=== PATIENT | male | born 1955 | race Asian ===

== ENCOUNTER 2017-08-21 08:21 | Day surgery (SDC) | payer OTHER ==
[2017-08-21] VITALS (14 sets, daily range): BP systolic 122–154; BP diastolic 83–95; PULSE 68–85; RESP 14–18; Ht 172.7 cm; Wt 82.7 kg
[~2017-08-21] VITALS: Ht 172.7 cm; Wt 82.7 kg
[~2017-08-21 08:21] MED LIST: CEFAZOLIN 1 GM INJ ONE; ROCURONIUM 50 MG INJ ONE
[2017-08-21] MEDS ORDERED: SOD CHLORIDE 0.9% 1,000 ML IV SCH (08:30)
[2017-08-21] MEDS ORDERED: CEFAZOLIN 2 GM/50 ML (PMX) 50 ML IVPB ONE (08:30)
[2017-08-21 09:38] LABS: BASOPHILS % 0.5 % (0.0-2.0); EOSINOPHILS # 0.2 10^3/ul (0.0-0.5); EOSINOPHILS % 4.6 % (0.0-7.0); HEMATOCRIT 42.4 % (42.0-52.0); HEMOGLOBIN 14.5 g/dl (14.0-18.0); LYMPHOCYTES # 1.4 10^3/ul (0.8-2.9); LYMPHOCYTES % 34.2 % (15.0-51.0); MEAN CORPUSCULAR HEMOGLOBIN 30.7 pg (29.0-33.0); MEAN CORPUSCULAR HGB CONC 34.2 g/dl (32.0-37.0); MEAN CORPUSCULAR VOLUME 89.8 fl (82.0-101.0); MEAN PLATELET VOLUME 10.1 fl (7.4-10.4); MONOCYTE # 0.3 10^3/ul (0.3-0.9); MONOCYTES % 8.1 % (0.0-11.0); NEUTROPHIL # 2.1 10^3/ul (1.6-7.5); NEUTROPHILS % 52.6 % (39.0-77.0); PLATELET COUNT 177 10^3/UL (140-415); RED BLOOD COUNT 4.72 10^6/ul (4.70-6.10)
[2017-08-21] MEDS ORDERED: LOSA100T7 PO (09:49)
[2017-08-21] MEDS ORDERED: SIMV20TA2 PO (09:49)
[2017-08-21 09:58] LABS: HOLD TRANSMISSIONS 1
[2017-08-21] MEDS ORDERED: ALBUTEROL 0.083% (NEB) 2.5 MG/3 ML AMP HHN PRN (11:00)
[2017-08-21] MEDS ORDERED: KETOROLAC 30 MG INJ IV PRN (11:00)
[2017-08-21] MEDS ORDERED: hydrALAzine 20 MG INJ IV PRN (11:00)
[2017-08-21] MEDS ORDERED: ONDANSETRON 4 MG INJ IV PRN (11:00)
[2017-08-21] MEDS ORDERED: METOCLOPRAMIDE 10 MG INJ IV PRN (11:00)
[2017-08-21] MEDS ORDERED: EPHEDrine SULFATE 50 MG/5 ML SYG IV PRN (11:00)
[2017-08-21] MEDS ORDERED: MIDAZOLAM 1 MG/ML 2 ML INJ IV PRN (11:00)
[2017-08-21] MEDS ORDERED: OXYCODONE/ACETAMINOPHEN (5/325) TAB PO PRN ×2 (11:00)
[2017-08-21] MEDS ORDERED: DIPHENHYDRAMINE 50 MG INJ IV PRN (11:00)
[2017-08-21] MEDS ORDERED: LABETALOL HCL 20MG INJ IV PRN (11:00)
[2017-08-21] MEDS ORDERED: MEPERIDINE 25 MG INJ IV PRN (11:00)
[2017-08-21] MEDS ORDERED: FENTAnyl 50 MCG/ML VIAL IV PRN ×3 (11:00)
[2017-08-21] MEDS ORDERED: HYDROmorphONE (0.2 MG/ML) 10ML SYG IV PRN ×2 (11:00)
[2017-08-21] MEDS ORDERED: BUPIVACAINE 0.25% (MPF) 30 ML INJ ONE (11:02)
[2017-08-21] MEDS ORDERED: POLYMYXIN/BACITRACIN 1L IRRIG ONE (11:02)
[2017-08-21] MEDS ORDERED: LIDOCAINE 2% (SDV) 5 ML INJ ONE (11:29)
[2017-08-21] MEDS ORDERED: PROPOFOL 20 ML ONE (11:29)
[2017-08-21] MEDS ORDERED: ROCURONIUM 50 MG INJ ONE (11:29)
[2017-08-21] MEDS ORDERED: FENTAnyl 50 MCG/ML VIAL ONE (11:31)
--- NOTE | 2017-08-21 11:41 | RADRPT ---
PROCEDURE: XR Chest. CLINICAL INDICATION: Preop evaluation. TECHNIQUE: Single frontal view of the chest was obtained COMPARISON: None FINDINGS: The heart and mediastinum are within normal limits. Possible calcified granuloma in the periphery of the right lung base. No focal consolidation, pleura l effusion, or pneumothorax. Degenerative changes of the spine and shoulder joints are present. IMPRESSION: 1. No acute cardiopulmonary disease. RPTAT:AAJJ Physician Danuta Date Time Electronically viewed and signed by Odalys Cueto Physician on 08/21/2017 11:41 QL/
[2017-08-21] MEDS ORDERED: SUGAMMADEX SODIUM 200 MG/2 ML VIAL IV ONE (12:17)
--- NOTE | 2017-08-21 12:39 | OPR ---
Date/Time of Note Date/Time of Note DATE: 08/21/17 TIME: 12:35 Operative Report Procedure Date: Aug 21, 2017 Preoperative Diagnosis left inguinal hernia Postoperative Diagnosis incarcerated left inguinal hernia Operation/Procedure Performed 1. open left incarcerated inguinal hernia repair with medium ultrapro hernia system mesh 2. therapeutic injection of subcutaneous local anesthesia Surgeon see signature line Internal Communications Writer none Anesthesia Type: general Estimated Blood Loss: 0 - 10 ml's Transfusion none Specimen none Grafts/Implants none Complications none Pt Condition Post Procedure: stable Indications This is a 62-year-old male with a left incarcerated inguinal hernia. He requests surgical repair. Risks alternatives benefits and percent were discussed the patient. Patient expressed understanding consents to the operation. Procedure Description Patient is taken to the OR and prepped and draped in usual sterile fashion. Surgical timeout was performed. IV antibiotics given. Left inguinal oblique incision is made with a 10 blade. Dissection Carrs carried onto the extremity fascia. This is open with a 15 blade. This incision is extended medially inferiorly lateral superiorly with Metzenbaum scissors. Cord structures identified and encircled with a [place] drain. Indirect hernia is identified and reduced manually. This area was bolstered with the distal portion of the ultrapure hernia system mesh. The mesh is secured in place with a running 0 Prolene from the pubic tubercle along the shelving of the inguinal ligament. The disc mesh is also secured to intra-bleed with interrupted 3-0 Vicryl. Onlay mesh is secured in similar fashion with a running oh point from the pubic tubercle along the shelving of the inguinal ligament. Structure creating reapproximated around the cord structures to re-create the inguinal ring with 0 Prolene interrupted fashion. The onlay mesh is secured to intra-oblique with interrupted 3-0 Vicryl. Externally fascia was closed running 3-0 Vicryl. Catalino's fascia is closed with interrupted 3-0 Vicryl. Skin is closed using inzorb absorbable skin staplers. Therapeutic subcutaneous local anesthesia is injected. Dry dressings were applied. Temi PRASAD Aug 21, 2017 12:39
[2017-08-21] MEDS: HYDROmorphONE (0.2 MG/ML) 10ML SYG IV PRN ×3 (12:40→13:16)
[2017-08-21] MEDS ORDERED: HYDROCODONE/APAP (5/325) TAB PO ONE (13:00)
== END 2017-08-21 16:05 | disposition home or self-care (01) ==
LOC: SDS 08:21
PROVIDERS: ATTEND Surgery
DX: K40.30 Unilateral inguinal hernia, with obstruction, without gangrene, not specified as recurrent (principal); I10 Essential (primary) hypertension
CPT/HCPCS: 49507; 71010; 85025; C1781; J0690; J1170; J2175; J2405; J3010; Z7512; Z7610

== ENCOUNTER 2017-12-12 08:32 | Day surgery (SDC) | END 2017-12-12 18:45 | disposition home or self-care (01) ==